=== PATIENT | male | born 1990 | race Caucasian/White ===

== ENCOUNTER 2019-04-26 17:51 | Emergency (ER) | payer MEDICAID ==
[~2019-04-26] VITALS: Ht 182.9 cm; Wt 86.2 kg
--- NOTE | 2019-04-26 19:07 | NUR ---
PT WAS EVALUATED BY DR OHARA. PT WAS D/C'd TO HOME. R/C INSTRUCTIONS GIVEN TO THE PT.
[2019-04-26 19:08] VITALS: BP 135/77
== END 2019-04-26 19:08 | disposition home or self-care (01) ==
LOC: ER 17:55
DX: H66.91 Otitis media, unspecified, right ear (principal); H60.91 Unspecified otitis externa, right ear; F17.210 Nicotine dependence, cigarettes, uncomplicated
CPT/HCPCS: A4663